=== PATIENT | male | born 1960 | race Caucasian/White ===

== ENCOUNTER 2017-05-14 07:28 | Emergency (ER) | payer OTHER ==
[2017-05-14 08:05] LABS: BASOPHIL % 0.2 % (0-2); PLATELET COUNT 151 x10^3mcL (130-400); RED CELL DISTRIBUTION WIDTH 13.3 % (11.5-14.5)
[2017-05-14 08:16] LABS: CALCIUM 8.6 mg/dL (8.5-10.1); CARBON DIOXIDE 26.5 mmol/L (21-32); CHLORIDE SERUM 105 mmol/L (98-107); CREATININE SERUM 1.2 mg/dL (0.7-1.3); GFR1 > 60 mL/min; GLUCOSE SERUM 133 mg/dL (74-106); POTASSIUM SERUM 3.9 mmol/L (3.5-5.1); SODIUM SERUM 140 mmol/L (136-145)
[2017-05-14 08:20] LABS: ALBUMIN 3.8 g/dL (3.4-5.0); ALKALINE PHOSPHATASE 76 U/L (46-116); ALT/SGPT 24 U/L (16-63); AMYLASE 44 U/L (25-115); AST/SGOT 10 U/L (15-37); BILIRUBIN TOTAL 0.58 mg/dL (0.20-1.00); CHOLESTEROL 162 mg/dL (<200); HDL CHOLESTEROL 41 mg/dL (40-60); LIPASE 201 IU/L (73-393); TOTAL PROTEIN, SERUM 7.3 g/dL (6.4-8.2)
[2017-05-14 09:31] LABS: microscopic required? NO
[2017-05-14 10:00] VITALS: BP 118/70
[2017-05-14 10:08] LABS: UA SPECIFIC GRAVITY 1.015 (1.005-1.035); urine erythrocyte NEGATIVE (NEGATIVE)
== END 2017-05-14 10:01 | disposition home or self-care (01) ==
LOC: ED 07:28
PROVIDERS: Emergency Medicine
DX: K80.70 Calculus of gallbladder and bile duct without cholecystitis without obstruction (principal); E78.00 Pure hypercholesterolemia, unspecified
CPT/HCPCS: 83880; J1885; J3490; J7030; Q0092

== ENCOUNTER 2020-07-18 03:29 | Emergency (ER) | payer OTHER ==
[~2020-07-18] VITALS: Ht 182.9 cm; Wt 98.7 kg
[2020-07-18 03:39] VITALS: Ht 182.9 cm; Wt 98.7 kg
[2020-07-18 04:19] LABS: BASOPHIL % 0.4 % (0-2); PLATELET COUNT 142 x10^3mcL (130-400); RED CELL DISTRIBUTION WIDTH 13.8 % (11.5-14.5)
[2020-07-18 04:53] LABS: CALCIUM 8.1 mg/dL (8.5-10.1); CARBON DIOXIDE 28.1 mmol/L (21-32); CREATININE SERUM 1.8 mg/dL (0.7-1.3); POTASSIUM SERUM 3.7 mmol/L (3.5-5.1)
[2020-07-18 04:57] LABS: ALBUMIN 3.4 g/dL (3.4-5.0); BILIRUBIN TOTAL 0.67 mg/dL (0.20-1.00); TOTAL PROTEIN, SERUM 6.8 g/dL (6.4-8.2)
[2020-07-18 05:42] VITALS: BP 118/77
== END 2020-07-18 05:42 | disposition home or self-care (01) ==
LOC: ED 03:29
PROVIDERS: Emergency Medicine
DX: N23 Unspecified renal colic (principal); K57.30 Diverticulosis of large intestine without perforation or abscess without bleeding
CPT/HCPCS: J1885; J7030